=== PATIENT | female | born 1970 | race Caucasian/White ===

== ENCOUNTER → 2022-03-26 14:37 | Outpatient (CLI) | payer OTHER, SELFPAY ==
--- NOTE | ~2022-03-26 | MR_ITS ---
EXAMINATION: MR ankle RT wo con, MR foot RT wo con DATE: 03/26/2022 15:21 INDICATION: Chronic right foot and ankle pain and difficulty walking. Tendinitis at the Achilles and posterior tibial tendons. TECHNIQUE: 1. Magnetic resonance imaging (MRI) of the right ankle/hindfoot was performed without intravenous con trast. Sequences included sagittal, coronal, and axial PD-weighted FSE and PD-weighted FS FSE. 2. MRI of the right fore/mid foot was performed without intravenous contrast. Sequences included sagi ttal T1-weighted FSE, sagittal fluid sensitive FSE STIR, coronal PD-weighted FS FSE, coronal T1-weigh brendon FSE, axial PD-weighted FS FSE, and axial PD-weighted FSE. COMPARISON: None. FINDINGS: Medial ankle ligaments: Deep and superficial deltoid ligaments as well as the spring ligament are normal. Lateral ankle ligaments: The anterior and posterior inferior tibiofibular, anterior and posterior talofibular as well as the c alcaneofibular ligaments are normal. Tendons: Distal Achilles tendon is thickened with mild increased signal consistent with mild tendinosis. Small enthesophytes and small amount of enthesopathic ossification at the calcaneal insertion of the dista l tendon. The tibialis posterior, flexor digitorum longus and flexor hallucis longus tendons are norm al. Mild tendinopathy and longitudinal split tearing of the peroneus brevis tendon. Peroneus longus t endon is normal. The extensor tendons of the foot/ankle are normal. Plantar fascia: Small plantar calcaneal spur at the calcaneal origin of the plantar aponeurosis which appears otherwi se normal. No associated marrow or soft tissue edema to suggest acute plantar fasciitis. Bones/other: Bone alignment is normal. No fracture. Mild osteoarthritis at the ankle joint with subarticular cysti c changes along the articular surface of the distal fibula and at the posterior medial aspect of the talar dome. Marrow signal is otherwise normal. Small enthesophytes along the dorsal aspect of the hea d of the talus and the dorsal aspect of the navicula at the margins of both the proximal and distal a rticular surfaces. Additional mild osteoarthritis at the second and third tarsal metatarsal and first metatarsophalangeal joints. Lisfranc ligament complex as well as the collateral ligament complex at the metatarsophalangeal and interphalangeal joints are normal. Intrinsic musculature of the foot is u nremarkable. Fluid: Physiologic amount fluid in the joint spaces. Small amount of fluid in the first intermetatarsal burs a between the right seventh the first and second metatarsals which remains within normal limits. No o ther abnormal fluid collections. IMPRESSION: 1. Mild tendinopathy and longitudinal split tearing of the peroneus brevis tendon. 2. Mild distal Achilles tendinosis/enthesopathy. 3. 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 Reviewed, dictated and finalized at location A. IMPRESSION: 1. Mild tendinopathy and longitudinal split tearing of the peroneus brevis tend on. 2. Mild distal Achilles tendinosis/enthesopathy. 3. 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
== END ==
PROVIDERS: PCP Family Medicine; Visit Provider Orthopaedic Surgery
DX: M76.821 Posterior tibial tendinitis, right leg (principal); M76.61 Achilles tendinitis, right leg; M19.071 Primary osteoarthritis, right ankle and foot
CPT/HCPCS: 73718; 73721